=== PATIENT | male | born 1985 | race Caucasian/White ===

== ENCOUNTER 2021-06-07 08:55 | Outpatient (CLI) | payer OTHER | END 2021-06-07 08:56 | disposition home or self-care (01) | LOC: MRI 08:55 | PROVIDERS: ATTEND Orthopaedic Surgery | DX: S46.011A Strain of muscle(s) and tendon(s) of the rotator cuff of right shoulder, initial encounter (principal); S40.011A Contusion of right shoulder, initial encounter ==